=== PATIENT | male | born 1945 | race Caucasian/White ===

== ENCOUNTER 2019-06-06 22:44 | Emergency (ER) | payer OTHER, MEDICARE ==
[~2019-06-06] VITALS: Ht 170.2 cm; Wt 100.0 kg
[2019-06-07 01:19] VITALS: BP 148/83
== END 2019-06-07 01:20 | disposition home or self-care (01) ==
LOC: ER 22:44
DX: S61.216A Laceration without foreign body of right little finger without damage to nail, initial encounter (principal); S61.214A Laceration without foreign body of right ring finger without damage to nail, initial encounter; I10 Essential (primary) hypertension; E11.9 Type 2 diabetes mellitus without complications; Z87.442 Personal history of urinary calculi; Z88.1 Allergy status to other antibiotic agents; Z85.46 Personal history of malignant neoplasm of prostate; W26.0XXA Contact with knife, initial encounter; Y93.89 Activity, other specified; Y92.098 Other place in other non-institutional residence as the place of occurrence of the external cause; Y99.9 Unspecified external cause status